=== PATIENT | female | born 1955 | race Caucasian/White ===

== ENCOUNTER 2018-01-04 08:19 | Day surgery (SDC) | payer OTHER ==
[2018-01-04] MEDS ORDERED: FENTAnyl 50 MCG/ML VIAL (10:13)
[2018-01-04] MEDS ORDERED: MIDAZOLAM 1 MG/ML 2 ML INJ ×2 (10:13)
== END 2018-01-04 11:19 | disposition home or self-care (01) ==
LOC: GIL 08:19
DX: Z12.11 Encounter for screening for malignant neoplasm of colon (principal); D12.5 Benign neoplasm of sigmoid colon; K57.90 Diverticulosis of intestine, part unspecified, without perforation or abscess without bleeding; I10 Essential (primary) hypertension
CPT/HCPCS: 45380